=== PATIENT | male | born 1995 | race Hispanic/Latino ===

== ENCOUNTER 2018-09-04 21:16 | Emergency (ER) | payer SELFPAY ==
[2018-09-04] MEDS ORDERED: Dexamethasone 10 MG/ML VIAL ONE (22:25)
[2018-09-04] MEDS ORDERED: diphenhydrAMINE 25 MG CAP ONE (22:25)
== END 2018-09-04 22:32 | disposition home or self-care (01) ==
LOC: ERS 21:16
DX: T78.40XA Allergy, unspecified, initial encounter (principal)
CPT/HCPCS: 99282; J1100; Q0163